=== PATIENT | female | born 1975 | race Caucasian/White ===

== ENCOUNTER 2020-03-08 12:44 | Emergency (ER) | payer MEDICAID, SELFPAY ==
[2020-03-08 12:53] VITALS: BP 132/92; PULSE 101; RESP 16; TEMP 36.9; O2SAT 95; BMI 48.7
--- NOTE | 2020-03-08 13:01 | ED_ITS ---
HPI - Skin/Abscess/Foreign Bdy General: Chief complaint: Skin/Abscess/Foreign Body Stated complaint: arm pain Time Seen by Provider: 03/08/20 12:53 History of Present Illness: HPI narrative: Her back is a nice 44-year-old female who comes in with report of a tender area under her left axilla. The area has been present for 3 days. She states that it is tender to the touch but has not been draining. She denies any fevers or chills or nausea or vomiting. Review of Systems General: Reports: 10 or more systems reviewed and unremarkable except in HPI and below PFSH ED PFSH: Social History Smoking and tobacco status: former smoker Physical Exam Const: COMMON NORMALS: no apparent distress, oriented x3, no limitations, healthy appearing and well nourished EXAM LIMITATIONS: no altered mental status GENERAL APPEARANCE: cooperative, well kempt and well developed ORIENTATION/CONSCIOUSNESS: Yes awake HENMT: COMMON NORMALS: normocephalic, head/scalp atraumatic, hearing grossly normal bilaterally, external ears normal, EAC's normal, external nose normal and moist oral mucous membranes HEAD & SCALP: normal to inspection, normocephalic and atraumatic FACE & SINUS: normal facial exam and face symmetric NOSE: external nose normal and nares normal EXTERNAL EAR: Yes external ears normal EXTERNAL AUDITORY CANAL: EAC's normal MOUTH: oral and palatal mucosa normal and tongue normal Eye: COMMON NORMALS: PERRL, EOMs intact bilaterally, conjunctivae normal and no scleral icterus GENERAL EYE: normal appearance of both eyes and normal light reflex CONJUNCTIVA: Yes conjunctivae normal SCLERA: sclerae normal CORNEA: Yes corneas normal PUPIL: Yes PERRL DIRECT OPHTHALMOSCOPY: Yes normal light reflex Neck/C-Spine: COMMON NORMALS: full ROM, no lymphadenopathy, supple, no meningeal signs and no JVD GENERAL: Yes normal visual inspection and Yes trachea midline CERVICAL SPINE: Yes cervical ROM normal Chest: COMMONS NORMALS: inspection of chest normal and palpation of chest normal Resp: COMMON NORMALS: normal respiratory effort, no retractions, no use of accessory muscles and clear to auscultation bilaterally EFFORT & INSPECTION: Yes able to speak in complete sentences AUSCULTATION: clear to auscultation bilaterally Cardio: COMMON NORMALS: no JVD, regular rate, regular rhythm, S1 normal heart sound, S2 normal heart sound, no gallops, no clicks, no murmurs and no rub JUGULAR VENOUS DISTENTION: no JVD RATE: regular rate RHYTHM: regular rhythm HEART SOUNDS: S1 normal and S2 normal GI: COMMON NORMALS: soft to palpation, non-tender, no hepatosplenomegaly and no masses INSPECTION: Yes normal to inspection PALPATION: Yes soft and Yes no hepatosplenomegaly : COMMON NORMALS: Yes no CVA tenderness BLADDER/KIDNEY EXAM: Yes no CVA tenderness Back/Pelvis: COMMON NORMALS: no CVA tenderness, thoracic and lumbar spine normal to inspection, no thoracic nor lumbar tenderness and thoraco-lumbar ROM normal Extremity: COMMON NORMALS: normal to inspection, full ROM, normal capillary refill, no joint enlargement, no clubbing, cyanosis or edema and no calf tenderness Neuro: COMMON NORMALS: oriented x3, CN's II-XII intact bilaterally, moves all extremities, no focal motor deficits and no sensory deficits noted MENINGEAL SIGNS: Yes no meningeal signs Psych: COMMON NORMALS: mental status grossly normal, thought process normal, cooperative, affect normal, speech normal and activity/motor behavior normal APPEARANCE: Yes well kempt SPEECH: Yes normal speech THOUGHT PROCESS: normal thought process Skin: COMMON NORMALS: skin turgor normal, no jaundice, no petechiae and no mottling NARRATIVE SKIN EXAM: Tender area under left axilla. Mild overlying cellulitis. GENERAL SKIN EXAM: turgor normal Course Vital Signs: Vital signs: Vital Signs Temperature 98.4 F 03/08/20 12:53 Pulse Rate 101 H 03/08/20 12:53 Respiratory Rate 16 03/08/20 12:53 Blood Pressure 132/92 03/08/20 12:53 Pulse Oximetry 95 03/08/20 12:53 MDM - Skin/Abscess/Foreign Bdy MDM Narrative: Medical decision making narrative: Bedside ultrasound revealed no evidence of fluid collection but cellulitis findings present. I discussed with the patient that despite this an abscess could develop and she may have to return to have this drained. She understands. She does want to try antibiotics to keep this from occurring. I will place her on Keflex for better gram- positive coverage and Bactrim to cover for MRSA. Discharge Plan Discharge Patient Disposition: Home, Self-Care Clinical Impression: Cellulitis Qualifiers: Site of cellulitis: extremity Site of cellulitis of extremity: axilla Laterality: left Qualified Code(s): L03.112 - Cellulitis of left axilla Condition: Stable Prescriptions: New Bactrim DS 800-160 mg tablet 2 tab PO BID 10 Days Qty: 40 RF: 0 Keflex 500 mg capsule 500 mg PO QID 10 Days Qty: 40 RF: 0 Discharge Orders: Discharge Order (Routine); Ordered 03/08/20 Ordered By: Geno Hicks Referrals: Geno Hicks [Emergency Provider] - 1-3 days Discharge Diet: Advance as tolerated Discharge Activity: Increase activity as tolerated Patient Instructions: Cellulitis (ED) Activity Restrictions/Additional Instructions: Please return to the ER immediately for any of the signs or symptoms listed on your discharge instruction sheets, worsening/changing of your symptoms, you are not getting better as quickly as expected, or for ANY other cause or concerns. It is still possible for the area in your arm that is involved tooth abscess so if it worsens in any way please return to the ER immediately for recheck. Coding Level of Care Code ED Hospital Chief Financial Officer for Joselo Abdullahi
[2020-03-08] MEDS: sulfamethoxazole-trimeth DS 160-800 mg Tablet 2 TAB PO (13:14)
[2020-03-08] MEDS: cephALEXin 500 mg Capsule PO (13:14)
== END 2020-03-08 13:17 | disposition home or self-care (01) ==
PROVIDERS: Emergency Provider Emergency Medicine
DX: L03.112 Cellulitis of left axilla (principal); Z87.891 Personal history of nicotine dependence
CPT/HCPCS: 12345; 99281; 99283

== ENCOUNTER 2020-07-05 15:19 | Emergency (ER) | payer MEDICAID, SELFPAY ==
[2020-07-05 15:59] VITALS: BP 109/74; PULSE 91; RESP 18; TEMP 37.1; O2SAT 95; BMI 48.2
--- NOTE | 2020-07-05 16:33 | ED_ITS ---
HPI - Back Pain/Injury General: Chief Complaint: Back Pain/Injury Stated Complaint: back pain Time Seen by Provider: 07/05/20 16:33 History of Present Illness: HPI Narrative: 44-year-old female patient presents to the emergency department with complaints of 4-day onset of back pain. She reports with sitting on the commode when she dropped her glasses, bent over to pick them up and experienced pain in the lower back. She denies history of back pain. She denies bilateral lower extremity weakness, chronic peripheral neuropathy per patient secondary to type 2 diabetes. Denies bladder or bowel incontinence. She denies falls or bilateral lower extremity weakness Reports diabetes controlled on oral medication. MD elicited complaint: back pain and back injury (Lower back) Onset (ago): day(s) (4) Timing: constant Severity: moderate Similar Symptoms Previously: No Quality: sharp and spasming Location: lumbar spine Radiation: none Exacerbating factors: movement and walking Relieving factors: none Context: while lifting, turning/twisting and bending Associated symptoms: Deny abdominal pain, chills, dysuria, fever(s), nausea or vomiting Review of Systems General: Reports: 10 or more systems reviewed and unremarkable except in HPI and below Const: Denies: fever(s), chills or diaphoresis Eyes: Denies: blurry vision or eye redness ENMT: Denies: throat pain, dental pain or disequilibrium Card: Denies: chest pain, palpitations or irregular heart rhythm Resp: Denies: dyspnea, productive cough, non-productive cough or wheezing GI: Denies: abdominal pain, nausea or vomiting : Denies: difficulty voiding or dysuria Musc: Reports: back pain (lower) Skin/Breast: Denies: rash or pruritus Neuro: Denies: headache(s), weakness in extremities or behavioral changes Ezra/Lymph: Denies: easy bruising PFSH ED PFSH: Social History Smoking and tobacco status: former smoker Physical Exam Const: COMMON NORMALS: no acute distress, patient oriented x3, healthy appearing and alert GENERAL APPEARANCE: cooperative and well hydrated NUTRITIONAL APPEARANCE: obese HENMT: COMMON NORMALS: normocephalic, Normal external nose present and moist oral mucous membranes HEAD & SCALP: normocephalic NOSE: Normal external nose present Eye: COMMON NORMALS: Equal, round and reactive pupils present and EOMs intact bilaterally GENERAL EYE: appearance normal, both eyes and all related structures PUPIL: Yes Equal, round and reactive pupils present Neck/C-Spine: COMMON NORMALS: full ROM and no lymphadenopathy GENERAL: Yes normal visual inspection and Yes trachea midline CERVICAL SPINE: Yes cervical ROM normal Lymph: LYMPHATIC: no lymphadenopathy noted Chest: COMMONS NORMALS: normal inspection of the chest Resp: COMMON NORMALS: normal respiratory effort and clear to auscultation bilaterally AUSCULTATION: clear to auscultation bilaterally Cardio: COMMON NORMALS: regular rhythm, S1 normal heart sound present and S2 normal heart sound present RHYTHM: regular rhythm HEART SOUNDS: S1 normal heart sound present and S2 normal heart sound present GI: COMMON NORMALS: Soft to palpation and non-tender INSPECTION: Yes normal to inspection PALPATION: Yes Soft to palpation : COMMON NORMALS: Yes no CVA tenderness BLADDER/KIDNEY EXAM: Yes no CVA tenderness and No CVA tenderness Back/Pelvis: COMMON NORMALS: no CVA tenderness GENERAL BACK: No CVA tenderness THORACIC SPINE/UPPER BACK: No paraspinal muscle tenderness and No paraspinal muscle spasm LUMBAR SPINE/LOWER BACK: Yes ROM limited, No lumbar spinal tenderness, Yes paraspinal muscle tenderness Lumbar paraspinal muscle tenderness: bilateral, Yes paraspinal muscle spasm Lumbar paraspinal muscle spasm: bilateral, No straight leg raise positive right, No straight leg raise positive left and Yes other soft tissue findings (lumbar lordosis present, negative point lumbar/thoracic spine tenderness) SACROILIAC JOINTS: Yes SI joints normal Extremity: COMMON NORMALS: normal to inspection and capillary refill normal Neuro: COMMON NORMALS: patient oriented x3 and no focal motor deficits SENSORIUM/ORIENTATION: Yes alert Psych: COMMON NORMALS: mental status grossly normal, Normal thought process present and cooperative ACTIVITY/MOTOR BEHAVIOR: Yes appropriate eye contact THOUGHT PROCESS: Normal thought process present Skin: COMMON NORMALS: no rashes or lesions noted and turgor normal GENERAL SKIN EXAM: no rashes or lesions noted and turgor normal Course Vital Signs: Vital signs: Vital Signs Temperature 98.7 F 07/05/20 15:59 Pulse Rate 91 07/05/20 15:59 Respiratory Rate 18 07/05/20 15:59 Blood Pressure 109/74 07/05/20 15:59 Pulse Oximetry 95 07/05/20 15:59 Discharge Plan Discharge Patient Disposition: Home Clinical Impression: Back pain due to injury Strain of lumbar region Qualifiers: Encounter type: initial encounter Qualified Code(s): S39.012A - Strain of muscle, fascia and tendon of lower back, initial encounter Condition: Stable Prescriptions: New ibuprofen 600 mg tablet 600 mg PO Q8H PRN (Reason: pain) Qty: 30 RF: 0 cyclobenzaprine 10 mg tablet 10 mg PO TID PRN (Reason: muscle spasm) Qty: 14 RF: 0 Discharge Orders: Discharge Order (Routine); Ordered 07/05/20 Ordered By: Kaitlyn Vaughn Referrals: Ann Marie Weiss DO [Primary Care Provider] - Discharge Diet: Usual diet Discharge Activity: Limit activity as instructed Patient Instructions: Acute Low Back Pain (ED), Back Pain (ED) Activity Restrictions/Additional Instructions: follow up with your doctor as scheduled for back pain take medication return to the ED for urinary or bowel incontinence, legs weakness that leads to falls Take it easy, do not bend or twist at the waist! No heavy lifting for the next 6 weeks over 10 pounds Coding Level of Care Code ED Hand Former Helper for Joselo Fwd Exam Comprehensive
[2020-07-05] MEDS: ketorolac 60 mg/2 mL INJ IM (17:03)
[2020-07-05] MEDS: cyclobenzaprine 10 mg Tablet PO (17:03)
== END 2020-07-05 17:25 | disposition home or self-care (01) ==
PROVIDERS: Emergency Provider Nurse Practitioner Family; PCP Family Medicine
DX: S39.012A Strain of muscle, fascia and tendon of lower back, initial encounter (principal); Z87.891 Personal history of nicotine dependence; X50.1XXA Overexertion from prolonged static or awkward postures, initial encounter
CPT/HCPCS: 12345; 96372; 99281; 99283; J1885

== ENCOUNTER → 2020-10-17 13:47 | Outpatient (BNVA) | payer MEDICAID, SELFPAY | PROVIDERS: PCP Family Medicine; Visit Provider Nurse Practitioner Family | DX: Z20.828 Contact with and (suspected) exposure to other viral communicable diseases (principal); Z01.812 Encounter for preprocedural laboratory examination | CPT/HCPCS: 87635 ==

== ENCOUNTER 2020-10-22 09:39 | Outpatient (CLI) | payer MEDICAID, SELFPAY ==
--- NOTE | 2020-10-22 09:57 | PFTS_ITS ---
Date of Study:10/22/20 Date of Dictation: MECHANICS: Forced vital capacity (FVC) is . Forced expiratory volume in one second (FEV1) is . FEV1/FVC is . FLOW VOLUME LOOP: . LUNG VOLUMES: Total lung capacity (TLC) is . Residual volume (RV) is . DIFFUSING CAPACITY FOR CARBON MONOXIDE: . INTERPRETATION: The pulmonary function tests are . mechanics and lung volumes. Gas exchange (DLCO) is . MTDD
--- NOTE | 2020-10-22 09:57 | PFTS_ITS ---
Date of Study:10/22/20 Date of Dictation: MECHANICS: Forced vital capacity (FVC) is normal. Forced expiratory volume in one second (FEV1) is normal. FEV1/FVC is normal. FLOW VOLUME LOOP: Normal. LUNG VOLUMES: Not measured. DIFFUSING CAPACITY FOR CARBON MONOXIDE: Not measured. INTERPRETATION: The prebronchodilator spirometry is normal. MTDD
== END 2020-10-22 09:40 | disposition home or self-care (01) ==
LOC: RT 09:40
PROVIDERS: PCP Family Medicine; Visit Provider Nurse Practitioner Family
DX: F17.201 Nicotine dependence, unspecified, in remission (principal); R05 Cough
CPT/HCPCS: 94010

== ENCOUNTER 2021-01-06 08:20 | Outpatient (CLI) | payer MEDICAID, SELFPAY ==
--- NOTE | 2021-01-06 08:30 | CT_ITS ---
WS: [id number] CT ABDOMEN AND PELVIS WITH CONTRAST HISTORY: PERIUMBILICAL ABDOMINAL PAIN TECHNIQUE: Imaging performed of the abdomen and pelvis with IV contrast. Single phase imaging of the abdomen. Coronal and sagittal reformats are submitted. All CT scans at [facility] use at least one of these dose optimization techniques: automated exposure control; mA and/or kV adjustment per patient size (includes targeted exams where dose is matched to clinical indication); or iterativ e reconstruction. IV CONTRAST: Omnipaque 300; 95 mL IV. Oral contrast: Yes. DLP: 1265.08 mGycm COMPARISON: 11/29/2018 Lower thorax: Lung bases are clear. Heart is normal size. No hiatal hernia. Liver/biliary system: Moderate hepatomegaly with diffuse moderate hepatic steatosis. No bile duct dil atation or mass. Gallbladder: Status post cholecystectomy. Pancreas: Normal. Spleen: Normal. Adrenal glands: Normal. Right kidney: Normal. Left kidney: Normal. Aorta: Normal. Lymphadenopathy: None. Free fluid: None. GI tract: Normal appendix. No GI tract obstruction. No wall thickening with no significant diverticul ar disease. Abdominal wall: Ventral abdominal wall hernia. Defect in the ventral abdominal wall measures 8.7 mm w ith herniating fat only. There are adjacent associated changes of a prior hernia repair. Pelvis: Normal. Bones: Unremarkable. CT/CT abdomen pelvis w con* [id number] IMPRESSION: 1. No acute abdominal or pelvic abnormalities. 2. Moderate hepatic steatosis and hepatomegaly. 3. Prior cholecystectomy. 4. Ventral abdominal wall hernia contains omental fat only.
[2021-01-06] MEDS: iohexol 300 mg/mL 50 mL Btl PO (09:56)
[2021-01-06] MEDS: iohexol 300 mg/mL 100 mL Btl IV (10:26)
== END 2021-01-06 08:21 | disposition home or self-care (01) ==
LOC: RADWPI 08:23
PROVIDERS: PCP Family Medicine; Visit Provider Registered Nurse
DX: R10.33 Periumbilical pain (principal); R11.2 Nausea with vomiting, unspecified; K43.9 Ventral hernia without obstruction or gangrene; K76.0 Fatty (change of) liver, not elsewhere classified; R16.0 Hepatomegaly, not elsewhere classified; Z90.49 Acquired absence of other specified parts of digestive tract
CPT/HCPCS: 74177; Q9967

== ENCOUNTER 2021-05-14 10:14 | Emergency (ER) | payer MEDICAID, SELFPAY ==
[2021-05-14 11:22] VITALS: BP 129/80; PULSE 82; RESP 15; TEMP 36.5; O2SAT 96; BMI 48.7
--- NOTE | 2021-05-14 11:44 | USCV_ITS ---
KahnGissel dias Age: 45 Gender: F : 1975 Exam Date: 05/14/2021 12:09 Ordering Phys: Bernard Green Technologist: India Cosby Exam Location: [facility] [place]_ Indication: left leg pain, non traumatic PROCEDURES: Venous duplex imaging was performed in only the left lower extremity. In addition, the posterior tibial and peroneal trunk were evaluated. On the left side, the common femoral, superficial femoral, profunda femoral, popliteal, posterior tibial, greater saphenous veins, and the peroneal trunk were identified and interrogated in the standard fashion. FINDINGS: No DVT found in LLE. Area of pain in left lateral calf area suggests cord-like varicosity that appears to be thrombosed. CONCLUSIONS No DVT left lower extremity. Thrombosed superficial varicose vein left calf. Dr. Cuca Boateng DO (Electronically Signed) Final Date: 14 May 2021 12:30 S
--- NOTE | 2021-05-14 11:45 | W.ED.EXTPRO ---
HPI - Extremity Problem General: Chief complaint: Extremity Injury, Lower Stated complaint: LEFT LEG PAIN Time Seen by Provider: 05/14/21 11:25 History of Present Illness: HPI Narrative: Patient is a 45-year-old female comes to the ED with left lower leg pain. Patient denies any acute trauma or injury to cause pain. Pain started today she was doing normal activity and then felt a sharp pain in her left calf. She reports that one of her veins was swollen and sticking out. The swelling of the vein has resolved since coming to the ED. She rates her pain a 5 out of 10 currently says it gets worse if she weightbears or moves her foot. She has not taken anything for pain before coming to the ED. She denies any history of blood clots or DVTs. Denies any chest pain, shortness of breath or hemoptysis. Associated symptoms: Deny chest pain, fever(s) or rash Review of Systems Const: Denies: fever(s), chills or fatigue Eyes: Denies: change in vision or eye discomfort ENMT: Denies: throat pain, odynophagia, nasal discharge or nasal congestion Card: Denies: chest pain, palpitations, edema, swelling of feet/ankles, dyspnea on exertion or orthopnea Resp: Denies: dyspnea, productive cough or non-productive cough GI: Denies: abdominal pain, nausea, vomiting, diarrhea, constipation or hematochezia : Denies: flank pain, dysuria or hematuria Musc: Reports: extremity pain (Left lower leg); Denies: neck pain, back pain or extremity swelling Skin/Breast: Denies: rash or new lesions Neuro: Denies: headache(s), numbness in extremities or weakness in extremities PFS ED PFSH: Social History Smoking and tobacco status: current every day smoker cigarettes Packs smoked per day: 1 Alcohol intake: never Physical Exam Const: COMMON NORMALS: no acute distress, patient oriented x3 and alert GENERAL APPEARANCE: cooperative and comfortable NUTRITIONAL APPEARANCE: obese HENMT: COMMON NORMALS: normocephalic HEAD & SCALP: normocephalic MOUTH: Normal oral and palatal mucosa present THROAT: posterior oropharynx normal and uvula midline Neck/C-Spine: COMMON NORMALS: supple GENERAL: Yes normal visual inspection Resp: COMMON NORMALS: normal respiratory effort, No retractions, No use of accessory muscles and clear to auscultation bilaterally AUSCULTATION: clear to auscultation bilaterally Cardio: COMMON NORMALS: regular rate, regular rhythm, S1 normal heart sound present, S2 normal heart sound present, No gallops present (Cardio), No clicks present (Cardio), No murmurs present (Cardio) and Peripheral pulses 2+ throughout RATE: regular rate RHYTHM: regular rhythm HEART SOUNDS: S1 normal heart sound present and S2 normal heart sound present PERIPHERAL PULSES: Peripheral pulses 2+ throughout GI: COMMON NORMALS: Normal to inspection, nondistended, normoactive bowel sounds present, Soft to palpation, non-tender and no masses PALPATION: Yes Soft to palpation : COMMON NORMALS: Yes no CVA tenderness BLADDER/KIDNEY EXAM: Yes no CVA tenderness Back/Pelvis: COMMON NORMALS: no CVA tenderness Extremity: COMMON NORMALS: no pedal edema GENERAL: Yes normal exam except as noted and Yes calf tenderness (left calf) Neuro: COMMON NORMALS: patient oriented x3 and moves all extremities SENSORIUM/ORIENTATION: Yes alert Skin: GENERAL SKIN EXAM: dry skin Course Vital Signs: Vital signs: Vital Signs Temperature 97.7 F 05/14/21 11:22 Pulse Rate 80 05/14/21 13:01 Respiratory Rate 16 05/14/21 13:01 Blood Pressure 126/80 05/14/21 13:01 Pulse Oximetry 96 05/14/21 13:01 MDM - Extremity (Nontraumatic) MDM Narrative: Medical decision making narrative: Patient is a 45-year-old female who comes to the ED with left lower extremity pain. Denies chest pain, shortness of breath or hemoptysis. Vitals stable. Ultrasound venous duplex showed no DVTs or blood clots but did show a superficial thrombophlebitis. Patient was diagnosed with a superficial thrombophlebitis and discharged home. Told to rest, elevate and apply cold pack to help with symptoms. Take [id number] ibuprofen for pain. Return to ED precautions given. Follow-up with PCP in 7 to 10 days for reevaluation. Patient understood agree with plan. Imaging Data^: US Vascular: Attestation: I personally reviewed and interpreted this imaging study as follows: Radiologist's impression: Ultrasound venous duplex left lower extremity?no DVTs or blood clots seen. Superficial thrombophlebitis. Discharge Plan Discharge Patient Disposition: Home Clinical Impression: Superficial thrombophlebitis Qualifiers: Superficial thrombophlebitis-Involved body area: lower extremity Laterality: left Qualified Code(s): I80.02 - Phlebitis and thrombophlebitis of superficial vessels of left lower extremity Condition: Stable Prescriptions: No Action glipizide 10 mg tablet 10 mg PO DAILY RF: 0 gabapentin 600 mg tablet 600 mg PO BID RF: 0 amoxicillin 500 mg tablet 500 mg PO TID 10 Days Qty: 30 RF: 0 benzonatate [Tessalon Perles] 100 mg capsule 100 mg PO TID PRN (Reason: cough) 10 Days Qty: 20 RF: 0 ibuprofen 600 mg tablet 600 mg PO Q8H PRN (Reason: pain) Qty: 30 RF: 0 cyclobenzaprine 10 mg tablet 10 mg PO TID PRN (Reason: muscle spasm) Qty: 14 RF: 0 Discharge Orders: Discharge ED (Routine); Ordered 05/14/21 Ordered By: Bernard Green Discharge Diet: Regular Discharge Activity: Increase activity as tolerated and Limit activity as instructed Patient Instructions: Superficial Thrombophlebitis (ED) Activity Restrictions/Additional Instructions: Follow-up with medical provider as directed in 7 days for reevaluation. Rest, elevate left leg. Alternate between applying heat and cold to sore area of the leg. Wear compression stockings as well to help with symptoms. Take ibuprofen per bottle instruction for pain. Take medications as prescribed. Return to the ER or your medical provider if condition worsens. Please read and understand discharge instructions. Thank you for choosing [facility] for your healthcare needs today. Please realize this is an emergency room and that we are providing you with a medical screening exam and this may not be complete and all inclusive of all the testing and or work up that you may need to determine your ailment or severity of your illness. It is very important that you follow up as instructed or that you return to the Emergency Department should you have concerns or if your condition changes or worsens in any way. Stand Alone Forms: Work/School Release Coding Level of Care Code ED Charter Representative for Joselo Fwcricket Exam Comprehensive
[2021-05-14] MEDS: ibuprofen 800 mg tablet PO (12:29)
[2021-05-14 12:30] VITALS: BP 120/77; PULSE 77; RESP 16; O2SAT 96
[2021-05-14 13:01] VITALS: BP 126/80; PULSE 80; RESP 16; O2SAT 96
== END 2021-05-14 13:00 | disposition home or self-care (01) ==
PROVIDERS: Emergency Provider Physician Assistant
DX: I80.02 Phlebitis and thrombophlebitis of superficial vessels of left lower extremity (principal); F17.210 Nicotine dependence, cigarettes, uncomplicated
CPT/HCPCS: 93971; 99283